=== PATIENT | female | born 1965 | race Hispanic/Latino ===

== ENCOUNTER 2023-07-03 08:37 | Emergency (ER) | payer OTHER ==
--- OUTSIDE RECORDS SUMMARY | 2023-07-03 08:52 | XMS REPORT | Continuity of Care Document ---
:1965 Author Organization [facility] t Address [address] [place] [address] [place] [address] Care Team Providers Name Role Phone ELLIOTT KEARNS Attending Clinician Unavailable DEBORAH OLIVO Attending Clinician Unavailable MITESH LOMBARDO Attending Clinician Unavailable LAB90 Attending Clinician Unavailable POLI BERG Attending Clinician Unavailable DON SANCHEZ Attending Clinician Unavailable ERIK CAST Attending Clinician Unavailable LASHAE LUEVANO Attending Clinician Unavailable JEWEL MCCARTHY Attending Clinician Unavailable MERRICK Attending Clinician Unavailable MERRICK Admitting Clinician Unavailable Payers Payer Name Policy Type Policy Number Effective Date Expiration Date Amaury rg AETNA [id number] 2023 00:00:00 [employer]ET[employer] CVS 9 [id number] 2023 00:00:00 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 Social History Social Habit Start Date Stop Date Quantity Comments Source Gender identity Polly Se ybold - External Sexual orientation Polly Seybold - External Alcohol intake 2023-06-06 2023-06-06 Lifetime Polly Almanza bold 00:00:00 00:00:00 non-drinker - External (finding) History of Social 2023-04-24 2023-04-24 Polly Barneyold function 00:00:00 00:00:00 - External Tobacco use and 2023-02-22 2023-02-22 Smokeless tobacco Ke mary beth Echols exposure 00:00:00 00:00:00 non-user - External Sex Ass[birth year] At [birth year] Polly hathaway 00:00:00 00:00:00 - External Smoking Status Start Date Stop Date Source Never smoked tobacco Polly coreas - External Medications Ordered Filled Start Stop Current Ordering Indication Dosage Frequency Signature Comments Components Source Medication Medication Date Date Medication? Clinician (SIG) Name Name MELOXICAM 2022-08 Yes Take by Kelse y OR 0-31 mouth Seybold 15:41: - 20 Externa l Baclofen 10 2022-08 Yes [id number] 10mg Take 1 Polly MG oral 0-31 tablet (10 Seybol d Tablet 00:00: mg total) - 00 by mouth Externa at bedtime l as needed No driving. No alcohol. No operating machinery. . Pregabalin 2022-08 Yes [id number] 100mg Take 1 Polly (Lyrica) 0-09 capsule Seybold 100 MG oral 00:00: (100 mg - Capsule 00 total) by Externa mouth 2 l times daily No driving. No alcohol. No operating machinery. . Nitrofurant Yes [id number] 100mg Take 1 Polly oin Monohyd 9-11 capsule Seybo ld Macro 00:00: (100 mg - (Macrobid) 00 total) by Exte rna 100 MG oral mouth 2 l Capsule times daily. MELOXICAM Yes Take by Kelse y OR 8-29 mouth Seybold 10:26: - 08 Externa l Duloxetine Yes [id number] 30mg Take 1 Polly HCl 8-29 capsule Seybold (Cymbalta) 00:00: (30 mg - 30 MG oral 00 total) by Exte rna Cap DR mouth l Particles daily No driving. No alcohol. No operating machinery. . Duloxetine 0 Yes [id number] 30mg Take 1 Polly HCl 8-29 capsule Seybold (Cymbalta) 00:00: (30 mg - 30 MG oral 00 total) by Exte rna Cap DR mouth l Particles daily No driving. No alcohol. No operating machinery. . Gabapentin 2022-0 2023- No [id number] 300mg Take 1 Polly 300 MG oral 8-29 08-29 capsule Seyb old Capsule 00:00: 00:00 (300 mg - 00 :00 total) by Externa mouth 2 l times daily. methylPREDN 0 Yes 1{stew} Take 1 stew Polly ISolone 8-17 by mouth Seybold (Medrol) 4 00:00: See Admin - MG oral 00 Instructio Supervisor Pleating a Tablet ns Use as l Therapy directed. Pack methylPREDN 0 Yes 1{stew} Take 1 stew Polly ISolone 8-17 by mouth Seybold (Medrol) 4 00:00: See Admin - MG oral 00 Instructio Supervisor Pleating a Tablet ns Use as l Therapy directed. Pack Diclofenac 0 Yes [id number] 75mg Take 1 Polly Sodium 75 8-13 9107 tablet by Seybo ld MG oral 00:00: mouth - Tablet 00 twice Externa Delayed daily l Response Diclofenac 2022-0 Yes [id number] 75mg Take 1 Polly Sodium 75 8-13 9107 tablet by Seybo ld MG oral 00:00: mouth - Tablet 00 twice Externa Delayed daily l Response MELOXICAM Yes Take by Kelse y OR 7-20 mouth Seybold 10:51: - 44 Externa l Cyclobenzap 2022-0 Yes [id number] 5mg Q.[id number] Take 1 Polly rine HCl 5 7-20 217151 [id number] tablet (5 Seybold MG oral 00:00: 3D mg total) - Tablet 00 by mouth 3 Externa times l daily as needed for muscle spasms Diclofenac 2022-0 Yes [id number] 75mg Take 1 Polly Sodium 75 7-20 9107 tablet (75 Seyb old MG oral 00:00: mg total) - Tablet 00 by mouth 2 Externa Delayed times l Response daily Cyclobenzap 2022-0 Yes [id number] 5mg Q.[id number] Take 1 Polly rine HCl 5 7-20 511784 [id number] tablet (5 Seybold MG oral 00:00: 3D mg total) - Tablet 00 by mouth 3 Externa times l daily as needed for muscle spasms Cyclobenzap 2022- No [id number] 5mg Q.[id number] Take 1 Polly rine HCl 5 7-20 10-31 158345 [id number] tablet (5 Seybold MG oral 00:00: 00:00 3D mg total) - Tablet 00 :00 by mouth 3 Externa times l daily as needed for muscle spasms Nutritional 2022- No Take by Ke Begel Systemsey Supplements 02-22 mouth Seybol d (VITAMIN D 11:26: 00:00 - BOOSTER OR) 54 :00 Externa l Vitamin D, Yes [id number] Take 1 Kee sey Ergocalcife 5-03 capsule Seybo ld rol, 1.25 00:00: (50,000 - MG (83820 00 units Externa UT) oral total) by l Capsule mouth once a week Metformin Yes 500mg Take 1 Kelse y HCl 500 MG 5-03 tablet Seybold oral Tablet 00:00: (500 mg - 00 total) by Externa mouth in l the morning and 1 tablet (500 mg total) in the evening. Take with meals. Vitamin D, Yes [id number] Take 1 Kee sey Ergocalcife 5-03 capsule Seybo ld rol, 1.25 00:00: (50,000 - MG (71770 00 units Externa UT) oral total) by l Capsule mouth once a week. Metformin Yes 500mg Take 1 Kelse y HCl 500 MG 5-03 tablet Seybold oral Tablet 00:00: (500 mg - 00 total) by Externa mouth in l the morning and 1 tablet (500 mg total) in the evening. Take with meals. Vitamin D, Yes [id number] Take 1 Kee sey Ergocalcife 5-03 capsule Seybo ld rol, 1.25 00:00: (50,000 - MG (48406 00 units Externa UT) oral total) by l Capsule mouth once a week. Metformin 2023-0 Yes 500mg Take 1 Kelse y HCl 500 MG 5-03 tablet Seybold oral Tablet 00:00: (500 mg - 00 total) by Externa mouth in l the morning and 1 tablet (500 mg total) in the evening. Take with meals. Vital Signs Vital Name Observation Time Observation Value Comments Source Body height 2023-06-06 20:39:00 154.9 cm Polly Montoya eybold - External Body weight 2023-06-06 20:39:00 62.313 kg Polly S eybold - External BMI 2023-06-06 20:39:00 25.96 kg/m2 Polly S eybold - External Systolic blood 2023-04-04 15:25:00 135 mm[Hg] Polly Seybold - pressure External Diastolic blood 2023-04-04 15:25:00 73 mm[Hg] Keese y Seybold - pressure External Heart rate 2023-04-04 15:25:00 68 /min Polly Montoya eybold - External Body temperature 2023-04-04 15:25:00 36.61 Neri Cora rosario Seybold - External Respiratory rate 2023-04-04 15:25:00 17 /min Cora rosario Seybold - External Body height 2023-04-04 15:25:00 152.4 cm Polly Montoya eybold - External Body weight 2023-04-04 15:25:00 62.596 kg Polly S eybold - External BMI 2023-04-04 15:25:00 26.95 kg/m2 Polly Montoya eybold - External Body weight 2023-02-23 15:48:00 62.869 kg Polly S eybold - External BMI 2023-02-23 15:48:00 27.07 kg/m2 Polly Montoya eybold - External Oxygen saturation in 2023-02-23 15:48:00 98 /min Polly Sechetjoss - Arterial blood by External Pulse oximetry Systolic blood 2023-02-23 15:48:00 104 mm[Hg] Polly Seybold - pressure External Diastolic blood 2023-02-23 15:48:00 70 mm[Hg] Keese y Seybold - pressure External Heart rate 2023-02-23 15:48:00 67 /min Polly S eybold - External Body temperature 2023-02-23 15:48:00 36.11 Neri Cora ey Seybold - External Respiratory rate 2023-02-23 15:48:00 16 /min Cora rosario Seybold - External Body height 2023-02-23 15:48:00 152.4 cm Polly Montoya eybold - External Procedures This patient has no known procedures. Encounters Start End Encounter Admission Attending Care Care Encounter Source Date/Time Date/Time Type Type Clinicians Facility Department ID 2023-03-[address] [facility] [id number] [place] 12:11:28 [id number] [facility] 2023-03-[address] [facility] [id number] [place] 14:30:01 [id number] [facility] 2023-01-[address] [facility] [id number] [place] 14:19:53 [id number] [facility] 2023-08-22 2023-08-22 Outpatient ELLIOTT KEARNS [id number] Polly 13:45:00 13:45:00 Seybol d 2023-07-25 2023-07-25 Outpatient POLLY LILLY [id number] Polly 13:15:00 13:15:00 Seybol d 2023-07-25 2023-07-25 Outpatient POLLY LILLY [id number] Polly 12:20:00 12:20:00 Seybol d 2023-07-03 2023-07-03 Outpatient DEBORAH OLIVO POLLY LILLY [id number] Polly 00:00:00 00:00:00 Seybol d 2023-06-06 2023-06-06 Outpatient ELLIOTT KEARNS [id number] Polly 16:15:00 16:15:00 Seybol d 2023-05-26 2023-05-26 Outpatient POLLY LOMBARDO [id number] Polly 00:00:00 00:00:00 MITESH Seybol d 2023-05-26 2023-05-26 Outpatient POLLY LOMBARDO [id number] Polly 00:00:00 00:00:00 MITESH Seybol d 2023-05-15 2023-05-15 Outpatient ELLIOTT KEARNS [id number] Polly 00:00:00 00:00:00 Seybol d 2023-04-26 2023-04-26 Outpatient PAVANDiamond POLLY LILLY [id number] Polly 00:00:00 00:00:00 MITESH Seybol d 2023-04-14 2023-04-14 Outpatient LAB90 POLLY LILLY [id number] Polly 11:05:00 11:05:00 Seybol d 2023-04-13 2023-04-13 Outpatient PAVANDiamond POLLY LILLY [id number] Polly 00:00:00 00:00:00 MITESH Seybol d 2023-04-04 2023-04-04 Outpatient ELLIOTT KEARNS POLLY LILLY [id number] Polly 11:00:00 11:00:00 Seybol d 2023-04-03 2023-04-03 Outpatient MORENAPOLLY [id number] Polly 13:40:00 13:40:00 POLI Seybol d 2023-03-29 2023-03-29 Outpatient DON SANCHEZ [id number] Polly 00:00:00 00:00:00 Seybol d 2023-03-27 2023-03-27 Outpatient POLLY LOMBARDO [id number] Polly 00:00:00 00:00:00 MITESH Seybol d 2023-03-23 2023-03-23 Outpatient POLLY LILLY [id number] Polly 10:00:00 10:00:00 Seybol d 2023-03-23 2023-03-23 Outpatient DON SANCHEZ [id number] Polly 09:30:00 09:30:00 Seybol d 2023-03-23 2023-03-23 Outpatient POLLY LILLY [id number] Polly 08:50:00 08:50:00 Seybol d 2023-03-22 2023-03-22 Outpatient DON SANCHEZ [id number] Polly 00:00:00 00:00:00 Seybol d 2023-03-18 2023-03-18 Outpatient POLLY LOMBARDO [id number] Polly 00:00:00 00:00:00 MITESH Seybol d 2023-03-08 2023-03-08 [address] SALLY [facility] [id number] [place] 08:30:00 08:30:00 ERIK Pfeiffer 2023-02-27 2023-02-27 Outpatient CHLOÉPOLLY GRIFFIN [id number] Polly 09:00:00 09:00:00 LASHAE Seybol d 2023-02-24 2023-02-24 Outpatient POLLY MCCARTHY [id number] Polly 00:00:00 00:00:00 JEWEL Seybol d 2023-02-23 2023-02-23 Outpatient LAB90 POLLY LILLY [id number] Polly 11:45:00 11:45:00 Seybol d 2023-02-23 2023-02-23 Outpatient PAVANDiamondPOLLY [id number] Polly 11:00:00 11:00:00 MITESH Seybol d 2023-01-21 2023-01-21 Outpatient SFA SFA [id number] Poli 11:32:26 11:32:26 [id number] [facility] [place] 2022-12-01 2022-12-01 Outpatient SFA SFA [id number] Poli 07:55:59 07:55:59 [id number] [place] 2022-11-30 2022-11-30 Outpatient SFA SFA [id number] Poli 15:04:55 15:04:55 [id number] F Doc 2022-02-18 2022-02-18 [facility] 92 [place] 10:24:00 10:24:00 _ANN 0715 [facility] Program Results Test Description Test Time Test Comments Results Result Comments Source VITAMIN D, 25 OH 2022-12-02 22:13:56 Test Item Value Reference Range Interpretation Comme nts VITAMIN D, 25 OH (test 172 NG/ML SEE BELOW H E FFECTIVE 08/15/2022, PLEASE NOTE code = 4958) NEW METHODOLOGY IS ELECTROCHEMILUM INESCENCE BINDING ASSAY. NOTE: 25-HYDROX YVITAMIN D ASSAY INCLUDES 25-HYDROXYVITAM IN D2 AND D3. INTERPRETIVE RA NGES PEDIATRIC (<17 YEARS) . . . . . . . . . . . NG/ML 20-100ADULT: IN SUFFICIENT . . . . . . . . . . . . . . N G/ML <20 SUBOPTIMAL . . . . . . . . . . . . . . . NG/ML 20-29 OPTIMAL . . . . . . . . . . . . . . . . . NG/ML 30-100 TSH, THIRD [id number] 15:14:25 Test Item Value Reference Range Interpretation Comments TSH, THIRD GENERATION (test code 3.710 UIU/ML 0.400-4.100 = 2821) LIPID [id number] 06:49:46 Test Item Value Reference Range Interpretation Comments CHOLESTEROL (test 273 MG/DL <200 H code = 2210) TRIGLYCERIDES (test 73 MG/DL <150 code = 2232) HDL CHOLESTEROL (test 98 MG/DL >39 code = 2220) CALC LDL CHOL (test 158 MG/DL <100 H NOTE: C ALCULATED LDL code = 2237) IS BASED ON DARI-BEE METHOD WHICHINCLUDES ADJUSTABLE TRIGLYCERIDE:VL DL CHOLESTEROL RAT IO.THIS FACTOR VARIES B Y MEASURED TRIGLY CERIDE AND NON-HDLCHOL ESTEROL CONCENTRATIONS WITH INCREASED CALCU LATED LDL SEENIN HIGH ER TRIGLYCERIDE OR LOWER NON-HDL SPECIME NS. FOR MOREINFORMATION , SEE CLIENT ANNOUNCE MENT AT [email or web address] RATIO LDL/HDL 1.61 RATIO <3.22 [facility] has important (test code = 2238) pathology staff changes effecti ve 10/05/2022. New pathology staff will provide uninter rupted, excellent patie nt care and clinical consultation. S ee URL: [email or web address]. UNLES S OTHERWISE INDIC ATED, ALL TESTING PER FORMED AT [facility], I MD. [address] [place] [address] LABOR ATORY DIRECTOR: Marilyn CALZADA LINDY NUMBER [id number] CAP ACCREDITATION N O. [id number] COMPREHENSIVE METABOLIC [id number] 06:49:46 Test Item Value Reference Range Interpretation Comments GLUCOSE (test code = 102 MG/DL 70-99 H 2216) BUN (test code = 20 MG/DL 6-20 2207) CREATININE (test 0.78 MG/DL 0.60-1.30 code = 2213) eGFR (2020 CKD-EPI) 87 ML/MIN/1.73 >60 (test code = 43685) CALC BUN/CREAT (test 26 RATIO 6-28 code = 2235) SODIUM (test code = 142 MEQ/L 541-318 1861) POTASSIUM (test code 4.5 MEQ/L 3.5-5.4 = 2227) CHLORIDE (test code 104 MEQ/L 95-107 = 2214) CARBON DIOXIDE (test 27 MEQ/L 19-31 code = 2205) CALCIUM (test code = 10.0 MG/DL 8.5-10.5 2208) PROTEIN, TOTAL (test 7.4 G/DL 6.1-8.3 code = 2228) ALBUMIN (test code = 4.3 G/DL 3.5-5.2 2200) CALC GLOBULIN (test 3.1 G/DL 1.9-3.7 code = 2239) CALC A/G RATIO (test 1.4 RATIO 1.0-2.6 code = 2233) BILIRUBIN, TOTAL <0.2 MG/DL See_Comment [Automated message] (test code = 2206) The syste m which generated this result transmit tamiko reference range : <=1.2. The refe rence range was not u sed to interpret th is result as normal/abnormal . ALKALINE PHOSPHATASE 78 U/L 40-136 (test code = 2203) AST (test code = 22 U/L 9-40 2217) ALT (test code = 22 U/L 5-40 2218) HEMOGLOBIN [id number] 05:00:07 Test Item Value Reference Range Interpretation Comments HEMOGLOBIN A1c (test 6.2 % 4.2-5.6 H AMERIC AN DIABETES code = 18686) ASSOCIATION IDELINES FOR HGB A1C: PREDIABETES/INC REASED RISK . . . . . . . 5.7 -6.4% DIAGNOSIS OF DI ABETES . . . . . . . . . >=6 .5% WITH CONFIRMATION OR APPROPRIATE SYMPTOMS NOTE: ASSAY MAY BE AFFECTED BY HEMOGLOBINOPATH IES (SICKLE CELL ANEMIA, S- C DISEASE, OTHERS) OR LUCIE FICIALLY LOWERED BY DECR EASED RED CELL SURVIVAL ( HEMOLYTIC ANEMIAS, BLOOD LOSS, ETC.). CONSIDER ALTERN ATE TESTING OR LABORATORY C ONSULTATION. CBC W/AUTO DIFF WITH [id number] 04:27:02 Test Item Value Reference Range Interpretation Comments WBC (test code = 6.5 K/UL 3.5-11.0 1001) RBC (test code = 4.70 M/UL 3.80-5.40 1002) HEMOGLOBIN (test code 13.3 G/DL 11.5-15.5 = 1003) HEMATOCRIT (test code 41.2 % 34.0-45.0 = 1004) MCV (test code = 87.7 fL 80.0-99.0 1005) MCH (test code = 28.3 PG 25.0-33.0 1006) MCHC (test code = 32.3 G/DL 31.0-36.0 1007) RDW (test code = 13.1 % 11.5-15.0 1038) NEUTROPHILS (test 41.2 % code = 1008) LYMPHOCYTES (test 47.1 % code = 1010) MONOCYTES (test code 9.9 % = 1011) EOSINOPHILS (test 1.2 % code = 1012) BASOPHILS (test code 0.6 % = 1013) IMMATURE GRANULOCYTES 0.0 % (test code = 1036) NUCLEATED RBCS (test 0.0 /100 WBC'S See_Comment [Aut omated code = 1065) message] The sy stem which generated this result transmitted reference range : 0.0. The refere nce range was not u sed to interpret th is result as normal/abnormal . PLATELET COUNT (test 333 K/UL 130-400 code = 1015) ABSOLUTE NEUTROPHILS 2.67 K/UL 1.50-7.50 (test code = 1066) ABSOLUTE LYMPHOCYTES 3.06 K/UL 1.00-4.00 (test code = 1067) ABSOLUTE MONOCYTES 0.64 K/UL 0.20-1.00 (test code = 1068) ABSOLUTE EOSINOPHILS 0.08 K/UL 0.00-0.50 (test code = 1040) ABSOLUTE BASOPHILS 0.04 K/UL 0.00-0.20 (test code = 1069) ABS IMMATURE 0.00 K/UL 0.00-0.10 GRANULOCYTES (test code = 1020) ABS NUCLEATED RBCS 0.00 K/UL 0.00-0.11 (test code = 88340) C-REACTIVE [id number] 06:04:39 Test Item Value Reference Range Interpretation Comments C-REACTIVE PROTEIN 0.8 MG/DL <0.5 H UNLESS O THERWISE (test code = 3513) INDICATED , ALL TESTING PERFORMED [facility] PATHOLOGY [facility] [employer]. [address] [place] [address] 77 4 LABORATORY DIRE CTOR: Sandhya MURRELL CLIA NUMBER [id number] CAP ACCREDITATION N O. [id number] SEDIMENTATION [id number] 05:20:29 Test Item Value Reference Range Interpretation Comments SEDIMENTATION RATE (test code = 38 MM/HOUR 0-20 H 1017) CBC W/AUTO DIFF WITH [id number] 04:27:32 Test Item Value Reference Range Interpretation Comments WBC (test code = 8.1 K/UL 3.5-11.0 1001) RBC (test code = 4.64 M/UL 3.80-5.40 1002) HEMOGLOBIN (test code 13.3 G/DL 11.5-15.5 = 1003) HEMATOCRIT (test code 39.0 % 34.0-45.0 = 1004) MCV (test code = 84.1 fL 80.0-99.0 1005) MCH (test code = 28.7 PG 25.0-33.0 1006) MCHC (test code = 34.1 G/DL 31.0-36.0 1007) RDW (test code = 12.8 % 11.5-15.0 1038) NEUTROPHILS (test 53.0 % code = 1008) LYMPHOCYTES (test 33.6 % code = 1010) MONOCYTES (test code 8.7 % = 1011) EOSINOPHILS (test 4.0 % code = 1012) BASOPHILS (test code 0.5 % = 1013) IMMATURE GRANULOCYTES 0.2 % (test code = 1036) NUCLEATED RBCS (test 0.0 /100 WBC'S See_Comment [Aut omated code = 1065) message] The sy stem which generated this result transmitted reference range : 0.0. The refere nce range was not u sed to interpret th is result as normal/abnormal . PLATELET COUNT (test 314 K/UL 130-400 code = 1015) ABSOLUTE NEUTROPHILS 4.28 K/UL 1.50-7.50 (test code = 1066) ABSOLUTE LYMPHOCYTES 2.71 K/UL 1.00-4.00 (test code = 1067) ABSOLUTE MONOCYTES 0.70 K/UL 0.20-1.00 (test code = 1068) ABSOLUTE EOSINOPHILS 0.32 K/UL 0.00-0.50 (test code = 1040) ABSOLUTE BASOPHILS 0.04 K/UL 0.00-0.20 (test code = 1069) ABS IMMATURE 0.02 K/UL 0.00-0.10 GRANULOCYTES (test code = 1020) ABS NUCLEATED RBCS 0.00 K/UL 0.00-0.11 (test code = 34822) VITAMIN D,1,17-[id number] 15:13:14 Test Item Value Reference Range Interpretation Comments VITAMIN 82.1 PG/ML 20.0-82.0 H This assay is primarily D,1,25-DIHYDROXY indicated f or evaluation (test code = 4960) of hyperc alcemia and for assessing patie nts with renal failure. A normal result does not exclude Vitamin D defic iency. To assess for Idalia min D deficiency, con systems analysis manager 25-Hydroxy Idalia min D assay. UNLESS O THERWISE INDICATED, ALL TESTING PERFORMED [facility] PATHOLOGY LABOR [facility] [address] [place] [address] 4 LABORATORY DIRE CTOR: WADE TROY M.D. CLIA NUMBER [id number] [place] [id number] LIUDMILA [id number] 09:10:23 Test Item Value Reference Range Interpretation Comments ANTI-NUCLEAR NEGATIVE NEGATIVE ANTIBODIES (test code = 3506) PATTERN (test NOT DETECTED NONE code = 24659) LIUDMILA TITER (test NOT DETECTED See_Comment [Automated message] code = 3550) TITER The system [employer] h generated this result transmitted ref erence range: <1:40. T he reference range was not used to interpr et this result as normal/abnormal . PATTERN 2 (test NOT DETECTED NONE code = 96653) LIUDMILA TITER 2 (test NOT DETECTED See_Comment [Automate d message] code = 40748) TITER The system [employer] generated this result transmitted ref erence range: <1:40. T he reference range was not used to interpr et this result as normal/abnormal . PATTERN 3 (test NOT DETECTED NONE code = 22951) LIUDMILA TITER 3 (test NOT DETECTED See_Comment [Automate d message] code = 46634) TITER The system [facility] generated this result transmitted ref erence range: <1:40. T he reference range was not used to interpr et this result as normal/abnormal . METHOD (test code (NOTE) Benjamin tom is = 71806) Indirect Immunofluoresce nt Assay (IFA) with a [employer] system using He p2000 cells (Hep2 neri ls transfected wit h SS-A/Ro). A pat tern reported as SS- A is considered conf irmatory in the appropri ate clinical contex t. Titers of 1:40 and 1:80 are considered weak/borderline positive. SEDIMENTATION [id number] 06:45:51 Test Item Value Reference Range Interpretation Comments SEDIMENTATION RATE (test code = 29 MM/HOUR 0-20 H 1017) RHEUMATOID FACTOR, [id number] 04:08:44 Test Item Value Reference Range Interpretation Comments RHEUMATOID FACTOR, QUANT (test code <10 IU/ML <14 = 3502) C-REACTIVE [id number] 04:08:44 Test Item Value Reference Range Interpretation Comments C-REACTIVE PROTEIN <0.3 MG/DL <0.5 UNLESS O THERWISE (test code = 3513) INDICATED , ALL TESTING PERFORMED [facility] PATHOLOGY LABOR [facility]. [address] [place] [address] 4 LABORATORY DIRE CTOR: WADE TROY M.D. CLIA NUMBER [id number] [facility] [place] [id number] COMPREHENSIVE METABOLIC [id number] 04:06:36 Test Item Value Reference Range Interpretation Comments GLUCOSE (test code = 106 MG/DL 70-99 H 2216) BUN (test code = 13 MG/DL -2207) CREATININE (test 0.80 MG/DL 0.60-1.30 code = 2214) eGFR (2020 CKD-EPI) 85 ML/MIN/1.73 >60 (test code = 10369) CALC BUN/CREAT (test 16 RATIO - code = 2235) SODIUM (test code = 143 MEQ/L 733-142 5572) POTASSIUM (test code 3.9 MEQ/L 3.5-5.4 = 2228) CHLORIDE (test code 104 MEQ/L 95-107 = 2215) CARBON DIOXIDE (test 26 MEQ/L 19-31 code = 2206) CALCIUM (test code = 9.9 MG/DL 8.5-10.5 2208) PROTEIN, TOTAL (test 7.4 G/DL 6.1-8.3 code = 2229) ALBUMIN (test code = 4.3 G/DL 3.5-5.2 2200) CALC GLOBULIN (test 3.1 G/DL 1.9-3.7 code = 2240) CALC A/G RATIO (test 1.4 RATIO 1.0-2.6 code = 2234) BILIRUBIN, TOTAL <0.2 MG/DL See_Comment [Automated message] (test code = 220) The syste m which generated this result transmit tamiko reference range : <=1.2. The refe rence range was not u sed to interpret th is result as normal/abnormal . ALKALINE PHOSPHATASE 98 U/L 40-136 (test code = 2203) AST (test code = 21 U/L 9-40 2217) ALT (test code = 16 U/L 5-40 2218) CBC W/AUTO DIFF WITH [id number] 01:44:25 Test Item Value Reference Range Interpretation Comments WBC (test code = 7.1 K/UL 3.5-11.0 1001) RBC (test code = 4.56 M/UL 3.80-5.40 1002) HEMOGLOBIN (test code 13.2 G/DL 11.5-15.5 = 1003) HEMATOCRIT (test code 40.3 % 34.0-45.0 = 1004) MCV (test code = 88.4 fL 80.0-99.0 1005) MCH (test code = 28.9 PG 25.0-33.0 1006) MCHC (test code = 32.8 G/DL 31.0-36.0 1007) RDW (test code = 13.0 % 11.5-15.0 1038) NEUTROPHILS (test 49.8 % code = 1008) LYMPHOCYTES (test 39.4 % code = 1010) MONOCYTES (test code 7.6 % = 1011) EOSINOPHILS (test 2.4 % code = 1012) BASOPHILS (test code 0.7 % = 1013) IMMATURE GRANULOCYTES 0.1 % (test code = 1036) NUCLEATED RBCS (test 0.0 /100 WBC'S See_Comment [Aut omated code = 1065) message] The sy stem which generated this result transmitted reference range : 0.0. The refere nce range was not u sed to interpret th is result as normal/abnormal . PLATELET COUNT (test 290 K/UL 130-400 code = 1015) ABSOLUTE NEUTROPHILS 3.53 K/UL 1.50-7.50 (test code = 1066) ABSOLUTE LYMPHOCYTES 2.79 K/UL 1.00-4.00 (test code = 1067) ABSOLUTE MONOCYTES 0.54 K/UL 0.20-1.00 (test code = 1068) ABSOLUTE EOSINOPHILS 0.17 K/UL 0.00-0.50 (test code = 1040) ABSOLUTE BASOPHILS 0.05 K/UL 0.00-0.20 (test code = 1069) ABS IMMATURE 0.01 K/UL 0.00-0.10 GRANULOCYTES (test code = 1020) ABS NUCLEATED RBCS 0.00 K/UL 0.00-0.11 (test code = 71391) Notes Date/Time Note Provider Source 2023-04-04 10:26:12 [id number]:26:12Formatting of [facility] this note is different from the Clinic original.Chief Complaint Patient presents with Back Pain Upper right side of back Neck Pain Neck pain that radiates to right shoulder Medications & pharmacy have been updated.Lizett Hoskins [id number] [id number]:29:39Nurse [id number] .[id number] for patient [id number] NoteLNKEEParkview Health27[address] [facility] [id number] [id number]:[id number] .72.3.15|[id number] .[id number] 2023-02-23 10:52:03 [id number]:52:03Formatting of [place] this note might be different from Clinic the original.Patient is here to establish carePatient does C/O arm pain r/t injured rotator cuff, received MRI in [place] in January. . VSS, medications reconciled. [id number] [id number]:53:33Nurse [id number] .[id number] for patient Kailash Cdybbi0052 [facility] [id number] [id number]:[id number] .72.3.15|[id number] .[id number]"
[2023-07-03 09:35] LABS: Absolute Lymphocytes (CBC) 1.6 K/uL (0.7-4.9); Hematocrit 41.9 % (36.0-45.0); Lymphocytes % 16.5 % (15.3-44.8); MCV 86.8 fL (80-100); MPV 8.6 fL (7.6-11.3); Platelets 289 thou/uL (152-406); RBC Red Blood Cell Count 4.83 M/uL (3.86-4.86)
[2023-07-03 09:40] LABS: Protime INR 1.02
[2023-07-03 10:02] LABS: ALT/SGPT 57 U/L (13-56); AST/SGOT 37 U/L (15-37); Albumin 3.6 g/dL (3.4-5.0); Alkaline Phosphatase 108 U/L (45-117); BUN Blood Urea Nitrogen 12 mg/dL (7-18); Bicarbonate 28 mEq/L (21-32); Bilirubin Total 0.3 mg/dL (0.2-1.0); Glomerular Filtration Rate 90 ml/min (=/>90); Glucose Level 105 mg/dL (74-106); Magnesium 1.9 mg/dL (1.6-2.4); Protein, Total 8.5 g/dL (6.4-8.2); Sodium Level 137 mEq/L (136-145); Troponin High Sensitivity 3.4 pg/mL (<58.9)
[2023-07-03 10:03] LABS: Bilirubin Direct < 0.1 mg/dL (0-0.2); Bilirubin Indirect, Calculated ND mg/dL (0.2-0.8)
--- NOTE | 2023-07-03 10:04 | RAD REPORT ---
EXAM DESCRIPTION: RAD - Chest Single View - 07/03/2023 9:12 am CLINICAL HISTORY: syncope Chest pain. COMPARISON: No comparisons FINDINGS: Portable technique limits examination quality. The lungs are grossly clear. The heart is normal in size. No displaced fractures. IMPRESSION: No acute intrathoracic process suspected.
--- NOTE | 2023-07-03 10:37 | RAD REPORT ---
EXAM DESCRIPTION: CT - Chest For Pe Angio - 07/03/2023 10:28 am CLINICAL HISTORY: Chest pain. syncope COMPARISON: No comparisons TECHNIQUE: CT angiogram of the pulmonary arteries was performed with MIP. All CT scans are performed using dose optimization technique as appropriate and may include automated exposure control or mA/KV adjustment according to patient size. FINDINGS: No evidence of pulmonary thromboembolism. No acute aortic finding demonstrated. The lungs are mildly emphysematous. Focal infiltrate is seen. No significant pericardial or pleural fluid. No concerning bony finding. IMPRESSION: No evidence of pulmonary thromboembolism. Mild COPD.
--- NOTE | 2023-07-03 12:51 | RAD REPORT ---
EXAM DESCRIPTION: RAD - Sacrum And Coccyx - 07/03/2023 11:11 am CLINICAL HISTORY: PAIN COMPARISON: No comparisons FINDINGS: Diffuse osteopenia is noted. No evidence of fracture is seen. No subluxation.
--- NOTE | 2023-07-03 12:54 | ER ---
Nurse's Notes [facility] Name: Teodora Aguiar Age: 57 yrs Sex: Female : 1965 Arrival Date: 07/03/2023 Time: 08:37 Bed 15 Private MD: Diagnosis: Syncope;Cough;Sacral pain Presentation: 07/03 08:59 Chief complaint: Syncopal episode yesterday morning that lasted approx 5-6 minutes. hb Coronavirus screen: At this time, the client does not indicate any symptoms associated with coronavirus-19. Ebola Screen: No symptoms or risks identified at this time. Initial Sepsis Screen: Does the patient meet any 2 criteria? No. Patient's initial sepsis screen is negative. Does the patient have a suspected source of infection? No. Patient's initial sepsis screen is negative. Risk Assessment: Do you want to hurt yourself or someone else? Patient reports no desire to harm self or others. Onset of symptoms was July 02, 2023. 08:59 Method Of Arrival: Wheelchair hb 08:59 Acuity: BRYSON 3 hb 13:17 No acute neurological deficit is noted. Pre-hospital glucose is not applicable to this ld1 patient. Historical: - Allergies: 09:00 No Known Allergies; hb - Immunization history:: Adult Immunizations up to date. - Social history:: Smoking status: Patient denies any tobacco usage or history of. Screenin:25 [facility] ED Fall Risk Assessment (Adult) History of falling in the last 3 months, tm6 including since admission Yes- single mechanical fall (1 pt) Confusion or Disorientation No (0 pts) Intoxicated or Sedated No (0 pts) Impaired Gait No (0 pts) Mobility Assist Device Used No (0 pt) Altered Elimination No (0 pt) Score/Fall Risk Level 0 - 2 = Low Risk. Abuse screen: Denies threats or abuse. Denies injuries from another. Nutritional screening: No deficits noted. Tuberculosis screening: No symptoms or risk factors identified. Assessment: 09:25 General: Appears in no apparent distress. Behavior is calm, cooperative. Pain: Denies tm6 pain. Neuro: Level of Consciousness is awake, alert, obeys commands, Oriented to person, place, time, situation. Cardiovascular: Capillary refill < 3 seconds Patient's skin is warm and dry. Rhythm is sinus rhythm. Respiratory: Reports cough that is Airway is patent Respiratory effort is even, unlabored, Respiratory pattern is regular, symmetrical. GI: Abdomen is flat, non-distended, Abd is soft and non tender. : No signs and/or symptoms were reported regarding the genitourinary system. EENT: No signs and/or symptoms were reported regarding the EENT system. Derm: No signs and/or symptoms reported regarding the dermatologic system. Musculoskeletal: No signs and/or symptoms reported regarding the musculoskeletal system. 10:03 Reassessment: Patient appears in no apparent distress at this time. Patient and/or tm6 family updated on plan of care and expected duration. Pain level reassessed. Patient is alert, oriented x 3, equal unlabored respirations, skin warm/dry/pink. 11:10 Reassessment: Patient appears in no apparent distress at this time. Patient and/or tm6 family updated on plan of care and expected duration. Pain level reassessed. Patient is alert, oriented x 3, equal unlabored respirations, skin warm/dry/pink. 12:25 Reassessment: Patient appears in no apparent distress at this time. No changes from tm6 previously documented assessment. Patient and/or family updated on plan of care and expected duration. Pain level reassessed. Patient is alert, oriented x 3, equal unlabored respirations, skin warm/dry/pink. Vital Signs: 08:59 BP 133 / 65; Pulse 100; Resp 18; Temp 98.3; Pulse Ox 100% on R/A; Pain 6/10; hb 09:25 BP 122 / 61; Pulse 82; Resp 14; Pulse Ox 99% on R/A; tm6 10:02 BP 121 / 65; Pulse 81; Pulse Ox 98% on R/A; tm6 10:04 Temp 98.5(O); tm6 11:10 BP 111 / 90; Pulse 87; Resp 15; Pulse Ox 100% on R/A; tm6 11:44 BP 119 / 70; Pulse 83; Pulse Ox 98% on R/A; tm6 12:25 BP 119 / 68; Pulse 85; Resp 13; Pulse Ox 97% on R/A; tm6 13:18 BP 115 / 80; Pulse 93; Resp 16; Pulse Ox 98% on R/A; tm6 08:59 Pain Scale: Adult hb ED Course: 08:39 Patient arrived in ED. mr 08:40 Oleksandr Santos DO is Attending Physician. ms3 09:00 Triage completed. hb 09:00 Arm band placed on. hb 09:03 Chloe Smith, RN is Primary Nurse. tm6 09:13 Chest Single View XRAY In Process Unspecified. EDMS 09:22 Inserted saline lock: 20 gauge in right antecubital area, using aseptic technique. tm6 09:25 Patient has correct armband on for positive identification. Placed in gown. Bed in low tm6 position. Call light in reach. Side rails up X2. Provided Education on: need for EKG. Client placed on continuous cardiac and pulse oximetry monitoring. NIBP monitoring applied. cardiac monitor on. Door closed. Noise minimized. Warm blanket given. 10:30 CT Chest For PE Angio In Process Unspecified. EDMS 11:13 Sacrum And Coccyx XRAY In Process Unspecified. EDMS 12:52 Lion Hernandez DO is Referral Physician. ms3 13:17 No provider procedures requiring assistance completed. IV discontinued, intact, ld1 bleeding controlled, No redness/swelling at site. Administered Medications: No medications were administered Medication: 09:25 VIS not applicable for this client. tm6 Outcome: 12:53 Discharge ordered by MD. ms3 13:18 Discharged to home ambulatory, ld1 13:18 Condition: stable 13:18 Discharge instructions given to patient, Instructed on discharge instructions, follow up and referral plans. Demonstrated understanding of instructions, follow-up care, medications, Prescriptions given X 1, 13:20 Patient left the ED. ld1 Signatures: Dispatcher [employer] EDAZ Kady Angelo, Reg Reg BackSally, BARB DAY Oleksandr Santos DO DO ms3 Rocío Santos RN RN ld1 Chloe Smith, RN RN tm6
--- NOTE | 2023-07-03 12:54 | EDPHYS ---
Physician Documentation [facility] Name: Teodora Aguiar Age: 57 yrs Sex: Female : 1965 Arrival Date: 07/03/2023 Time: 08:37 Bed 15 Private MD: ED Physician Oleksandr Santos HPI: 07/03 10:54 This 57 yrs old Female presents to ER via Wheelchair with complaints of ms3 Weakness. 10:54 57-year-old female with no past medical history presents to the emergency department ms3 status post syncopal episode yesterday at 4:30 AM. Patient states she got out of bed and took 2-3 steps and passed out for approximately 5 to 7 minutes. Patient states she is having sacrum/coccyx pain that she rates a 6/10. Patient also notes she developed a cough yesterday. Patient denies fevers, chills, nausea, vomiting, chest pain. Billing And Quality Technician [employer] #[id number] used for translation. Historical: - Allergies: 09:00 No Known Allergies; hb - Immunization history:: Adult Immunizations up to date. - Social history:: Smoking status: Patient denies any tobacco usage or history of. ROS: 10:54 Constitutional: Negative for fever, and chills. Neck: Negative for injury, pain, and ms3 swelling, Cardiovascular: Negative for chest pain, and palpitations. Respiratory: Negative for shortness of breath, cough, wheezing, and pleuritic chest pain, Abdomen/GI: Negative for abdominal pain, nausea, vomiting, diarrhea, and constipation, Skin: Negative for injury, rash, and discoloration, 10:54 Neuro: Positive for syncope, 10:54 All other systems are negative, Exam: 09:43 ECG was reviewed by the Attending Physician. ms3 10:54 Constitutional: This is a well developed, well nourished patient who is awake, alert, ms3 and in no acute distress. Head/Face: Normocephalic, atraumatic. Neck: Trachea midline, no cervical lymphadenopathy. Supple, full range of motion without nuchal rigidity, or vertebral point tenderness. No Meningismus. Chest/axilla: Normal chest wall appearance and motion. Nontender with no deformity. Cardiovascular: Regular rate and rhythm with a normal S1 and S2. No gallops, murmurs, or rubs. Normal PMI, no JVD. No pulse deficits. Respiratory: Lungs have equal breath sounds bilaterally, clear to auscultation and percussion. No rales, rhonchi or wheezes noted. No increased work of breathing, no retractions or nasal flaring. Abdomen/GI: Soft, non-tender, with normal bowel sounds. No distension or tympany. No guarding or rebound. No evidence of tenderness throughout. 10:54 Skin: Warm, dry with normal turgor. Normal color with no rashes, no lesions, and no evidence of cellulitis. 10:54 Back: pain, that is moderate, of the sacrum, Vital Signs: 08:59 BP 133 / 65; Pulse 100; Resp 18; Temp 98.3; Pulse Ox 100% on R/A; Pain 6/10; hb 09:25 BP 122 / 61; Pulse 82; Resp 14; Pulse Ox 99% on R/A; tm6 10:02 BP 121 / 65; Pulse 81; Pulse Ox 98% on R/A; tm6 10:04 Temp 98.5(O); tm6 11:10 BP 111 / 90; Pulse 87; Resp 15; Pulse Ox 100% on R/A; tm6 11:44 BP 119 / 70; Pulse 83; Pulse Ox 98% on R/A; tm6 12:25 BP 119 / 68; Pulse 85; Resp 13; Pulse Ox 97% on R/A; tm6 13:18 BP 115 / 80; Pulse 93; Resp 16; Pulse Ox 98% on R/A; tm6 08:59 Pain Scale: Adult hb MDM: 08:58 Patient medically screened. ms3 12:53 Data reviewed: vital signs, nurses notes, lab test result(s), EKG, radiologic studies, ms3 and as a result, I will discharge patient. Consideration of Admission/Observation Escalation of care including admission/observation considered. I considered the following discharge prescriptions or medication management in the emergency department. Independent interpretation of the following test(s) in the Emergency Department EKG: See my EKG interpretation above. Counseling: I had a detailed discussion with the patient and/or guardian regarding the historical points, exam findings, and any diagnostic results supporting the discharge/admit diagnosis, lab results, radiology results, the need for outpatient follow up, to return to the emergency department if symptoms worsen or persist or if there are any questions or concerns that arise at home. Special discussion: I discussed with the patient/guardian in detail that at this point there is no indication for admission to the hospital. It is understood, however, that if the symptoms persist or worsen the patient needs to return immediately for re-evaluation. ED course: Discussed labs, x-rays, CT scan with patient. Patient to follow-up with primary care physician as instructed. All questions were answered. Return precautions discussed include worsening symptoms, or any other concerns. On reevaluation patient is alert and oriented x 4, no apparent distress, nontoxic-appearing, ambulatory in emergency department, speaking full sentences. 07/03 09:00 Order name: Basic Metabolic Panel; Complete Time: 10: ms3 07/03 09:00 Order name: CBC with Diff; Complete Time: : ms3 07/03 09:00 Order name: Hepatic Function; Complete Time: 10: ms3 07/03 09:00 Order name: Magnesium; Complete Time: : ms3 07/03 09:00 Order name: Protime (+inr); Complete Time: 10: ms3 07/03 09:00 Order name: Ptt, Activated; Complete Time: 10: ms3 07/03 09:00 Order name: Troponin High Sensitivity; Complete Time: 10: ms3 07/03 09:00 Order name: D-Dimer; Complete Time: 10: ms3 07/03 09:00 Order name: Chest Single View XRAY; Complete Time: 10:11 ms3 07/03 10:12 Order name: CT Chest For PE Angio; Complete Time: 10:43 ms3 07/03 10:53 Order name: Sacrum And Coccyx XRAY; Complete Time: 12:52 ms3 07/03 09:00 Order name: EKG; Complete Time: 09:00 ms3 07/03 09:00 Order name: Cardiac monitoring; Complete Time: :21 ms3 07/03 09:00 Order name: EKG - Nurse/Tech; Complete Time: : ms3 07/03 09:00 Order name: IV Saline Lock; Complete Time: : ms3 07/03 09:00 Order name: Labs collected and sent; Complete Time: : ms3 07/03 09:00 Order name: NPO; Complete Time: :08 ms3 07/03 09:00 Order name: O2 Per Protocol; Complete Time: : ms3 07/03 09:00 Order name: O2 Sat Monitoring; Complete Time: : ms3 EC:43 Rate is 91 beats/min. Rhythm is regular. QRS [place] is Normal. SD interval is normal. QRS ms3 interval is normal. Clinical impression: Normal ECG. Interpreted by me. Reviewed by me. Administered Medications: No medications were administered Disposition Summary: 07/03/23 12:53 Discharge Ordered Notes: Location: Home ms3 Condition: Stable ms3 Diagnosis - Syncope ms3 - Cough ms3 - Sacral pain ms3 Followup: ms3 - With: Lion Hernandez DO - When: 1 - 2 days - Reason: Recheck today's complaints Discharge Instructions: - Discharge Summary Sheet ms3 - Syncope ms3 - Cough, Adult, Ebmx-is-Jofr ms3 Forms: - Medication Reconciliation Form ms3 - Thank You Letter ms3 - Antibiotic Education ms3 - Prescription Opioid Use ms3 - Patient Portal Instructions ms3 - Leadership Thank You Letter ms3 Prescriptions: - benzonatate 200 mg Oral capsule - take 1 capsule ORAL route 3 times per day as needed; 20 capsule; Refills: 0, ms3 Product Selection Permitted Signatures: Dispatcher [employer] EDSally Mclain RN RN Oleksandr Chris DO DO ms3 Corrections: (The following items were deleted from the chart) 18:14 10:54 57-year-old female with no past medical history presents to the emergency ms3 department status post syncopal episode yesterday at 4:30 AM. Patient states she got out of bed and took 2-3 steps and passed out for approximately 5 to 7 minutes. Patient states she is having sacrum/coccyx pain that she rates a 6/10. Patient also notes she developed a cough yesterday. Patient denies fevers, chills, nausea, vomiting, chest pain. ms3
[2023-07-03 14:35] VITALS: TEMP 98.5
[2023-07-03 14:39] VITALS: BP 115/80; O2SAT 98
--- NOTE | 2023-07-06 15:29 | EKG ---
Test Date: 2023-07-03 Test Time: 09:15:36 Blower Operator: NIYA MEASUREMENT RESULTS: Intervals: Rate: 91 MN: 158 QRSD: 68 QT: 330 QTc: 405 [place]: P: 74 MN: 158 QRS: 99 T: 52 INTERPRETIVE STATEMENTS: Normal sinus rhythm Biatrial enlargement Possible Right ventricular hypertrophy Abnormal ECG No previous ECG available for comparison Electronically Signed On 07-06-23 15:16:12 VICE PRESIDENT OF PROCUREMENT by Praful Roldan
== END 2023-07-03 13:20 | disposition home or self-care (01) ==
LOC: ER 08:37
DX: M53.3 Sacrococcygeal disorders, not elsewhere classified (principal); R55 Syncope and collapse; R05.9 Cough, unspecified
CPT/HCPCS: 93005; 85025; 80048; 36415; 83735; 85610; 85379; 80076; 85730; 84484; 71275; 71045; 72220; 99284; Q9967